=== PATIENT | male | born 1950 | race African-American/Black ===

== ENCOUNTER 2018-04-03 07:40 | Observation (INO) | payer MEDICARE, OTHER ==
[~2018-04-03] VITALS: Ht 188 cm; Wt 126.9 kg
[2018-04-03] MEDS ORDERED: ASPIRIN 81 MG TABLET CHEW PO ONE (08:30)
[2018-04-03] MEDS ORDERED: ASPIRIN 81 MG TABLET CHEW ONE (09:16)
[2018-04-03] MEDS ORDERED: [UNRECOGNIZED DRUG - REMARK] (09:28)
[2018-04-03 09:36] LABS: ANION GAP 9 mmol/L (5-15); CALCIUM 9.1 mg/dL (8.5-10.1); CHLORIDE 110 mmol/L (98-107); CREATININE 1.29 mg/dL (0.7-1.3)
[2018-04-03 09:37] LABS: ALBUMIN 3.7 g/dL (3.4-5.0)
[2018-04-03 09:40] LABS: TROPONIN I < 0.015 ng/mL (0.000-0.045)
[2018-04-03 09:46] LABS: BASOPHILS # (AUTO) 0.04 x10^3/uL (0-0.1); BASOPHILS % (AUTO) 1 % (0-1); EOSINOPHILS # (AUTO) 0.24 x10^3/uL (0-0.4); EOSINOPHILS % (AUTO) 3 % (1-7); LYMPHOCYTES # (AUTO) 2.09 x10^3/uL (1-3.4); LYMPHOCYTES % (AUTO) 29 % (22-44); MD NO; MEAN CORPUSCULAR HEMOGLOBIN 27.5 pg (27.5-34.5); MEAN CORPUSCULAR HGB CONC 32.5 g/dL (33.2-36.2); MEAN CORPUSCULAR VOLUME 84.5 fL (81-97); MEAN PLATELET VOLUME 9.1 fL (7.4-10.4); MONOCYTES # (AUTO) 0.74 x10^3/uL (0.2-0.8); MONOCYTES % (AUTO) 10 % (2-9); NEUTROPHILS # (AUTO) 4.05 x10^3/uL (1.8-6.8); NEUTROPHILS % (AUTO) 57 % (42-75); PLATELET COUNT 227 x10^3/uL (130-400); RED BLOOD COUNT 4.63 x10^6/uL (4.38-5.82); RED CELL DISTRIBUTION WIDTH 15.8 % (9.4-14.8)
[2018-04-03] MEDS ORDERED: OMNIPAQUE 350 MG/ML, 100ML BOTTLE ONE (10:12)
[2018-04-03] MEDS ORDERED: morphine SULFATE 10 MG/ML, 1ML IVPush PRN (13:00)
[2018-04-03] MEDS ORDERED: ENALAPRILAT 1.25 MG/ML, 2ML IVPush PRN (13:00)
[2018-04-03] MEDS ORDERED: LISINOPRIL 10 MG TABLET PO SCH (13:00)
[2018-04-03] MEDS ORDERED: NITROGLYCERIN 0.4 MG BOTTLE (25 TABS) SL PRN (13:00)
[2018-04-03] MEDS ORDERED: ACETAMINOPHEN 325 MG TABLET PO PRN (13:00)
[2018-04-03] MEDS ORDERED: ONDANSETRON 2MG/ML, 2ML IVPush PRN (13:00)
[2018-04-03] MEDS ORDERED: GUAIFENESIN/DM 200-20MG, 10ML UDC PO PRN (13:00)
[2018-04-03] MEDS ORDERED: ONDANSETRON ODT 4 MG PO PRN (13:00)
[2018-04-03] MEDS ORDERED: TEMAZEPAM 15 MG CAPSULE PO PRN (13:00)
[2018-04-03 13:02] VITALS: BP 155/91
[2018-04-03 13:31] LABS: HEMOGLOBIN A1C 6.4 % (4.2-6.3)
[2018-04-03] MEDS ORDERED: ATOR20TA9 PO (13:53)
[2018-04-03] MEDS ORDERED: METO25TA35 PO (13:53)
[2018-04-03] MEDS ORDERED: SILD50TA PO (13:53)
[2018-04-03] MEDS ORDERED: LISI-170 PO (13:53)
[2018-04-03] MEDS: HEPARIN 5,000 UNITS/ML, 1ML SQ SCH ×2 (14:35→23:00)
[2018-04-03 15:21] LABS: TROPONIN I < 0.015 ng/mL (0.000-0.045)
[2018-04-03 17:34] VITALS: BP 162/83
[2018-04-03 19:56] VITALS: BP 152/83
[2018-04-03] MEDS: LISINOPRIL 20 MG TABLET PO SCH (20:01)
[2018-04-03] MEDS ORDERED: ATORVASTATIN 20 MG TABLET PO SCH (21:00)
[2018-04-03] MEDS ORDERED: ATORVASTATIN 40 MG TABLET PO SCH (21:00)
[2018-04-03 21:13] LABS: TROPONIN I < 0.015 ng/mL (0.000-0.045)
[2018-04-04 02:33] VITALS: BP 162/75
[2018-04-04 05:25] LABS: ALBUMIN 3.5 g/dL (3.4-5.0); ANION GAP 9 mmol/L (5-15); CALCIUM 8.5 mg/dL (8.5-10.1); CHLORIDE 108 mmol/L (98-107)
[2018-04-04 05:29] LABS: ALANINE AMINOTRANSFERASE 41 U/L (12-78); ALKALINE PHOSPHATASE 70 U/L (45-117); BILIRUBIN,TOTAL 0.7 mg/dL (0.2-1.0); CHOL/HDL RATIO 3.4; CHOLESTEROL, TOTAL 133 mg/dL (140-239); HDL CHOL % 29 % (26-37); HDL CHOLESTEROL (DIRECT) 39 mg/dL (40-60); LDL CHOLESTEROL,CALCULATED 64 mg/dL (54-169); LDL/HDL RATIO 1.6 (0.5-3.0); TOTAL PROTEIN 7.2 g/dL (6.4-8.2); TRIGLYCERIDES 148 mg/dL (50-200); VLDL CHOLESTEROL 30 mg/dL (0-25)
[2018-04-04] MEDS: HEPARIN 5,000 UNITS/ML, 1ML SQ SCH ×2 (05:46→13:48)
[2018-04-04] MEDS ORDERED: ASPIRIN 325 MG TABLET EC PO SCH (06:00)
[2018-04-04] MEDS: LISINOPRIL 20 MG TABLET PO SCH (07:45)
[2018-04-04 07:47] VITALS: BP 151/78
[2018-04-04] MEDS ORDERED: REGADENOSON 0.4 MG/5 ML SYRINGE ONE (09:53)
[2018-04-04 13:42] VITALS: BP 163/84
[2018-04-04] MEDS ORDERED: ASPI-621 PO (14:08)
== END 2018-04-04 15:31 | disposition home or self-care (01) ==
LOC: ED 11:24 → INTOOBSV 11:56 → EDIP 11:56 → 5SO 12:52 → DCLOUNGE 04-04 15:20
PROVIDERS: ADMIT Internal Medicine; ATTEND Internal Medicine
DX: R07.9 Chest pain, unspecified (principal); I10 Essential (primary) hypertension; R94.31 Abnormal electrocardiogram [ECG] [EKG]; E78.5 Hyperlipidemia, unspecified; F17.200 Nicotine dependence, unspecified, uncomplicated; E11.9 Type 2 diabetes mellitus without complications; Z79.82 Long term (current) use of aspirin; Z82.49 Family history of ischemic heart disease and other diseases of the circulatory system; Z83.3 Family history of diabetes mellitus; Z96.653 Presence of artificial knee joint, bilateral; F10.10 Alcohol abuse, uncomplicated
CPT/HCPCS: 36415; 71045; 71275; 78452; 80048; 80053; 80061; 82040; 83036; 84484; 85025; 85379; 93005; 93017; 96372; 99285; A9502; C9898; G0378; J1644; J2785; Q9967